=== PATIENT | female | born 1985 | race Caucasian/White ===

== ENCOUNTER 2019-09-07 10:35 | Inpatient (IN) | payer OTHER ==
[~2019-09-07] VITALS: Ht 157.5 cm; Wt 69.9 kg
[2019-09-07] MEDS ORDERED: RINGERS SOLUTION,LACTATED 1,000 ML IV ONE ×2 (11:05→12:00)
[2019-09-07] MEDS ORDERED: METOCLOPRAMIDE HCL 5 MG/ML 2 ML VIAL IVP ONE (11:15)
[2019-09-07] MEDS ORDERED: CITRIC ACID/SODIUM CITRATE 30 ML SOLUTION UDCUP PO ONE (11:15)
[2019-09-07] MEDS ORDERED: NALOXONE HCL 0.4 MG/ML VIAL IVP PRN (11:45)
[2019-09-07] MEDS ORDERED: NALBUPHINE HCL 10 MG/ML VIAL IVP PRN ×2 (11:45)
[2019-09-07] MEDS ORDERED: ONDANSETRON HCL 4 MG/2 ML VIAL IVP PRN ×2 (11:45→12:00)
[2019-09-07] MEDS ORDERED: MORPHINE SULFATE 10 MG/ML SYRINGE IVP PRN (11:45)
[2019-09-07] MEDS ORDERED: FentaNYL CITRATE-PF 100 MCG/2 ML VIAL IVP PRN ×2 (11:45→12:00)
[2019-09-07] MEDS ORDERED: DiphenhydrAMINE HCL 50 MG/ML VIAL IVP PRN (11:45)
[2019-09-07] MEDS ORDERED: ACETAMINOPHEN 1000 MG/ISO-OSM 100 ML IV ONE (11:57)
[2019-09-07] MEDS ORDERED: BUPIVACAINE HCL/DEX-WATER/PF 0.75% 2 ML AMP ONE (11:57)
[2019-09-07] MEDS ORDERED: MORPHINE SULFATE/PF 1 MG/ML 10 ML AMP ONE (11:57)
[2019-09-07] MEDS ORDERED: ONDANSETRON HCL 4 MG/2 ML VIAL IVP ONE (12:00)
[2019-09-07] MEDS ORDERED: EPHEDrine SULFATE 50 MG/ML VIAL IM ONE (12:00)
[2019-09-07] MEDS ORDERED: 0.9% SODIUM CHLORIDE 10 ML VIAL IVP ONE (12:00)
[2019-09-07] MEDS ORDERED: MORPHINE SULFATE 2 MG/ML SYRINGE IVP PRN (12:00)
[2019-09-07] MEDS ORDERED: OXYTOCIN 10 UNITS/ML VIAL IM ONE (12:00)
[2019-09-07] MEDS ORDERED: DEXAMETHASONE SOD PHOS 4 MG/ML VIAL IVP ONE (12:00)
[2019-09-07] MEDS ORDERED: RINGERS SOLUTION,LACTATED 1,000 ML IV SCH (12:13)
[2019-09-07] MEDS ORDERED: OXYTOCIN 30 UNITS/LACT RINGERS 500 ML IV ONE (12:13)
[2019-09-07] MEDS ORDERED: OxyCODONE HCL/ACETAMINOPHEN 5-325 MG TABLET PO PRN ×2 (12:15)
[2019-09-07] MEDS ORDERED: LANOLIN 7 GM OINTMENT TP PRN (12:15)
[2019-09-07] MEDS ORDERED: CYCLOBENZAPRINE HCL 10 MG TABLET PO PRN (12:15)
[2019-09-07 12:16] LABS: BASOPHILS % (AUTO) 0.2 % (0.0-2.0); EOSINOPHILS % (AUTO) 0.9 % (1.0-6.0); HEMOGLOBIN 12.1 g/dL (12.0-16.0); LYMPHOCYTES % (AUTO) 12.5 % (22.0-44.0); MEAN CORPUSCULAR HEMOGLOBIN 31.3 pg (26.0-34.0); MEAN CORPUSCULAR HGB CONC 33.7 G/dL (31.0-37.0); MEAN CORPUSCULAR VOLUME 93 fL (80-100); MONOCYTES # (AUTO) 0.5 K/uL (0.1-1.0); NEUTROPHILS # (AUTO) 6.6 K/uL (1.8-7.7); NEUTROPHILS % (AUTO) 80.4 % (40.0-70.0); PLATELET COUNT (AUTO)-OB 159 K/uL (150-450); RED BLOOD CELL COUNT(AUTO) 3.88 MIL/uL (4.00-5.20)
[2019-09-07] MEDS ORDERED: INFLUENZA VIRUS VACCINE QVS 2019-20 (3YR+)/PF 60 MCG/0.5 ML SYRINGE IM ONE (14:30)
[2019-09-07 14:45] VITALS: BP 129/81
[2019-09-07] MEDS ORDERED: PREN-217 PO (14:47)
[2019-09-07] MEDS ORDERED: KETOROLAC TROMETHAMINE 30 MG/ML VIAL ONE (15:20)
[2019-09-07] MEDS ORDERED: KETOROLAC TROMETHAMINE 30 MG/ML VIAL IVP SCH (18:30)
[2019-09-07] MEDS ORDERED: OXYGEN THERAPY IH SCH ×2 (20:00)
[2019-09-07] MEDS: KETOROLAC TROMETHAMINE 30 MG/ML VIAL IVP SCH (21:40)
[2019-09-08] MEDS: KETOROLAC TROMETHAMINE 30 MG/ML VIAL IVP SCH (03:45)
[2019-09-08 06:29] LABS: BASOPHILS % (AUTO) 0.1 % (0.0-2.0); EOSINOPHILS % (AUTO) 0.7 % (1.0-6.0); HEMATOCRIT 30.8 % (36-46); HEMOGLOBIN 10.4 g/dL (12.0-16.0); LYMPHOCYTES # (AUTO) 1.6 K/uL (1.0-4.8); LYMPHOCYTES % (AUTO) 16.7 % (22.0-44.0); MEAN CORPUSCULAR HEMOGLOBIN 31.5 pg (26.0-34.0); MEAN CORPUSCULAR HGB CONC 33.8 G/dL (31.0-37.0); MEAN CORPUSCULAR VOLUME 93 fL (80-100); MONOCYTES # (AUTO) 0.8 K/uL (0.1-1.0); MONOCYTES % (AUTO) 8.1 % (2.0-9.0); NEUTROPHILS # (AUTO) 7.3 K/uL (1.8-7.7); NEUTROPHILS % (AUTO) 74.4 % (40.0-70.0); PLATELET COUNT (AUTO)-OB 156 K/uL (150-450); RED BLOOD CELL COUNT(AUTO) 3.31 MIL/uL (4.00-5.20); RED CELL DISTRIBUTION WIDTH 14.1 % (11.5-14.5)
[2019-09-08] MEDS: MAGNESIUM HYDROXIDE SUSPENSION 30 ML UDCUP PO SCH ×2 (10:03→21:08)
[2019-09-08] MEDS ORDERED: IBUP-2071 PO (11:22)
[2019-09-08] MEDS: IBUPROFEN 800 MG TABLET PO PRN ×2 (14:22→21:09)
[2019-09-09] MEDS ORDERED: DOCU-275 PO (08:41)
[2019-09-09] MEDS ORDERED: ACET-2247 PO (08:43)
== END 2019-09-09 14:30 | disposition home or self-care (01) | DRG 788 ==
LOC: 4S 10:35 → PREOBSVTOIN 09-18 10:49
PROVIDERS: ADMIT Obstetrics & Gynecology; ATTEND Obstetrics & Gynecology
PROC: 10D00Z1 Extraction of Products of Conception, Low, Open Approach (ICD-10-PCS; principal; 2019-09-07)
PROC: 3E02340 Introduction of Influenza Vaccine into Muscle, Percutaneous Approach (ICD-10-PCS; 2019-09-07)
DX: O34.211 Maternal care for low transverse scar from previous cesarean delivery (principal); O36.5930 Maternal care for other known or suspected poor fetal growth, third trimester, not applicable or unspecified; Z3A.38 38 weeks gestation of pregnancy; Z37.0 Single live birth; Z23 Encounter for immunization
CPT/HCPCS: 86850; 86900; 86901; 87081; 90686; 99219; J0131; J1100; J1885; J2405; J2590; J2765; J3010; J3490; J7120